=== PATIENT | male | born 1945 | race Two or more races ===

== ENCOUNTER 2018-09-05 19:11 | Emergency (ER) | payer BC, MEDICAID ==
[~2018-09-05] VITALS: Ht 172.7 cm; Wt 64.0 kg
[~2018-09-05 19:11] MED LIST: BENA40TA9; CLON0.2T
[2018-09-05] MEDS ORDERED: CLONIDINE 0.1MG TABLET PO ONE (21:00)
[2018-09-05] MEDS ORDERED: BENAZEPRIL 10MG TABLET PO ONE (21:00)
[2018-09-05] MEDS ORDERED: LIDOCAINE 1%/EPI 1:100,000 10 ML VIAL IJ ONE (23:00)
[2018-09-05] MEDS ORDERED: LIDOCAINE HCL/EPINEPHRINE 1%-EPI 1:100,000 20 ML VIAL IJ SCH (23:12)
[2018-09-06 00:57] VITALS: BP 181/93
== END 2018-09-06 01:04 | disposition home or self-care (01) ==
LOC: ER 19:11
DX: S01.01XA Laceration without foreign body of scalp, initial encounter (principal); S80.812A Abrasion, left lower leg, initial encounter; I10 Essential (primary) hypertension; I16.0 Hypertensive urgency; V29.9XXA Motorcycle rider (driver) (passenger) injured in unspecified traffic accident, initial encounter; Y93.I9 Activity, other involving external motion; Y92.89 Other specified places as the place of occurrence of the external cause; Y99.8 Other external cause status
CPT/HCPCS: 12002; 70450; 72125; 99284; J3490

== ENCOUNTER 2018-10-14 18:30 | Inpatient (IN) | payer BC, MEDICAID, MEDICARE ==
[~2018-10-14] VITALS: Ht 170.2 cm; Wt 80.7 kg
[2018-10-14] MEDS ORDERED: HYDR12.54 MT (18:48)
[2018-10-14 22:15] LABS: BASOPHILS % 0.9 % (0.0-2.0); EOSINOPHILS % 2.8 % (0.0-5.0); HEMATOCRIT. 47.4 % (42.0-52.0); HEMOGLOBIN. 15.3 g/dL (14.0-18.0); LYMPHOCYTES % 27.3 % (20.0-50.0); MEAN CORPUSCULAR HEMOGLOBIN 27.7 pg (28.0-32.0); MEAN CORPUSCULAR VOLUME 85.7 fL (80.0-94.0); MEAN PLATELET VOLUME 11.5 fl (7.4-10.4); MONOCYTES % 13.1 % (2.0-8.0); NEUTROPHILS % 55.9 % (40.0-76.0); PLATELET 153 x1000/uL (130-400); RED BLOOD CELL COUNT 5.53 mill/uL (4.7-6.1); RED CELL DISTRIBUTION WIDTH 14.4 % (11.6-14.6)
[2018-10-14 22:20] LABS: CLARITY URINE CLEAR (CLEAR); COLOR URINE YELLOW (YELLOW); KETONES URINE NEGATIVE (NEGATIVE); LEUKOCYTE ESTERASE URINE NEGATIVE (NEGATIVE); NITRITE URINE NEGATIVE (NEGATIVE); OCCULT BLOOD URINE NEGATIVE (NEGATIVE); PROTEIN URINE NEGATIVE (NEGATIVE); SPECIFIC GRAVITY URINE 1.011 (1.005-1.030); UROBILINOGEN URINE 0.2 E.U./dL (0.2-1.0)
[2018-10-14] MEDS ORDERED: LEVETIRACETAM 500MG PREMIX 100 ML IV ONE ×2 (23:00)
[2018-10-14 23:25] LABS: CHLORIDE 102 mEq/L (98-107)
[2018-10-14 23:27] LABS: INR 1.1; PROTHROMBIN TIME 10.7 sec (9.1-11.1)
[2018-10-15] VITALS (54 sets, daily range): BP systolic 82–186; BP diastolic 16–102
[2018-10-15] MEDS ORDERED: DEXT 5%/LACTATED RINGERS 1,000 ML IV SCH (07:12)
[2018-10-15] MEDS ORDERED: ACETAMINOPHEN 650MG SUPP PR PRN (07:15)
[2018-10-15] MEDS ORDERED: NITROGLYCERIN 0.4MG TABLET SL SL PRN (07:15)
[2018-10-15] MEDS ORDERED: NICARDIPINE 50 MG in SODIUM CHLORIDE 0.9% 230 ML IV PRN (07:15)
[2018-10-15] MEDS ORDERED: LORAZEPAM 2MG/ML CPJ IV PRN (07:15)
[2018-10-15] MEDS ORDERED: LEVETIRACETAM 500 MG in SODIUM CHLORIDE 0.9% 100 ML IV SCH (08:45)
[2018-10-15] MEDS ORDERED: NICARDIPINE 100 MG in SODIUM CHLORIDE 0.9% 60 ML IV PRN (08:45)
[2018-10-15] MEDS ORDERED: LEVETIRACETAM 500MG PREMIX 100 ML IV SCH (09:00)
[2018-10-15] MEDS ORDERED: ATROPINE SULFATE 1MG/10ML SYR ONE ×2 (09:02→13:16)
[2018-10-15] MEDS: DEXAMETHASONE 4MG/ML 1ML VIAL IV SCH ×4 (09:17→23:00)
[2018-10-15] MEDS: NITROPRUSSIDE 50 MG in SODIUM CHLORIDE 0.9% 248 ML IV PRN (09:19)
[2018-10-15] MEDS: DEXT 5%/LACTATED RINGERS 1,000 ML IV SCH (09:19)
[2018-10-15] MEDS: PANTOPRAZOLE SODIUM 40 MG/VIAL IV SCH (09:21)
[2018-10-15] MEDS ORDERED: GELATIN SPONGE,ABSORBABLE 12-7MM SPONGE ONE (09:33)
[2018-10-15] MEDS ORDERED: THROMBIN (BOVINE) 5000 UNITS/VIAL TOP ONE ×2 (09:33→09:34)
[2018-10-15] MEDS ORDERED: BACITRACIN 50,000 UNITS/VIAL ONE (09:34)
[2018-10-15] MEDS ORDERED: LIDOCAINE HCL/EPINEPHRINE 1%-EPI 1:100,000 20 ML VIAL ONE (09:34)
[2018-10-15 09:36] LABS: INR 1.1; PROTHROMBIN TIME 10.8 sec (9.1-11.1)
[2018-10-15] MEDS: CEFAZOLIN 1000MG PREMIX 50 ML IV SCH ×2 (09:56→17:16)
[2018-10-15] MEDS ORDERED: LEVETIRACETAM 500MG in SODIUM CHLORIDE 0.9% 100ML IV SCH (10:00)
[2018-10-15] MEDS ORDERED: NEOSTIGMINE METHYLSULFATE 1MG/ML 10 ML VIAL ONE (10:10)
[2018-10-15] MEDS ORDERED: FENTANYL CITRATE/PF 50MCG/ML 2ML VIAL ONE ×2 (10:10→11:10)
[2018-10-15] MEDS ORDERED: PROPOFOL 200MG/20ML VIAL IV ONE (10:11)
[2018-10-15] MEDS ORDERED: MIDAZOLAM HCL 2 MG/2 ML VIAL ONE ×2 (10:11→11:11)
[2018-10-15] MEDS ORDERED: ROCURONIUM BROMIDE 10MG/ML VIAL 5ML IV ONE ×2 (10:11→11:12)
[2018-10-15] MEDS ORDERED: GLYCOPYRROLATE 0.2 MG/ML 2ML VIAL ONE ×3 (10:11→11:23)
[2018-10-15] MEDS ORDERED: DEXAMETHASONE 4MG/ML 1ML VIAL ONE (10:32)
[2018-10-15] MEDS ORDERED: ONDANSETRON HCL 4MG/2ML INJ ONE (10:32)
[2018-10-15] MEDS ORDERED: LABETALOL HCL 5MG/ML VIAL 20ML IV ONE (11:14)
[2018-10-15] MEDS ORDERED: BACITRACIN 15GM TUBE TOP ONE (11:17)
[2018-10-15] MEDS ORDERED: EPHEDRINE SULFATE 50MG/ML VIAL ONE (11:24)
[2018-10-15] MEDS ORDERED: SODIUM CHLORIDE 0.9% 10ML VIAL ONE (11:24)
[2018-10-15] MEDS ORDERED: HYDROMORPHONE HCL/PF 2MG/ML CPJ IV PRN (11:30)
[2018-10-15] MEDS ORDERED: NON FORMULARY PATIENT HOME MED XX SCH (12:00)
[2018-10-15] MEDS ORDERED: PHENYTOIN SODIUM 500 MG in SODIUM CHLORIDE 0.9% 50 ML IV NR (12:30)
[2018-10-15] MEDS: PROPOFOL 10MG/ML 100ML 100 ML IV PRN ×2 (12:42→15:38)
[2018-10-15 13:49] LABS: BG BASE EXCESS -5.3 mmol/L (-2.0-2.0); BG CARBOXYHEMOGLOBIN 0.8 % (0.5-1.5); BG DEOXYHEMOGLOBIN 0.2 % (0.0-5.0); BG FRACTION INSPIRED OXYGEN 100; BG HCO3 ACT 19.3 mmol/L (22.0-26.0); BG METHEMOGLOBIN 0.5 % (0.0-1.5); BG OXYGEN SATURATION 99.8 % (92.0-98.5); BG OXYHEMOGLOBIN 98.5 % (94.0-97.0); BG PCO2 34.8 mmHg (35.0-45.0); BG PH 7.361 (7.350-7.450); BG PO2 389.2 mmHg (75.0-100.0); BG SAMPLE SITE RIGHT BRACHIAL; BG TIDAL VOLUME(mL) 500 mL; BG TOTAL HEMOGLOBIN 14.9 g/dL (12.0-18.0); BG VENT MODE VENT - A/C; BG VENT RATE 10 set
[2018-10-15] MEDS ORDERED: CEFAZOLIN SODIUM 1000MG/VIAL IV SCH (14:00)
[2018-10-15] MEDS ORDERED: ATROPINE SULFATE 1MG/ML VIAL IV NR (14:30)
[2018-10-15] MEDS ORDERED: ATROPINE SULFATE 1MG/10ML SYR IV NR (15:00)
[2018-10-16] VITALS (93 sets, daily range): BP systolic 95–175; BP diastolic 49–87
[2018-10-16] MEDS: PROPOFOL 10MG/ML 100ML 100 ML IV PRN ×5 (00:03→23:08)
[2018-10-16] MEDS: CEFAZOLIN 1000MG PREMIX 50 ML IV SCH ×3 (01:20→17:36)
[2018-10-16] MEDS: DEXT 5%/LACTATED RINGERS 1,000 ML IV SCH ×2 (01:21→21:03)
[2018-10-16] MEDS: DEXAMETHASONE 4MG/ML 1ML VIAL IV SCH ×4 (05:09→23:07)
[2018-10-16 05:43] LABS: HEMATOCRIT. 44.5 % (42.0-52.0); HEMOGLOBIN. 14.2 g/dL (14.0-18.0); MEAN CORPUSCULAR HEMOGLOBIN 27.3 pg (28.0-32.0); MEAN CORPUSCULAR VOLUME 85.5 fL (80.0-94.0); MEAN PLATELET VOLUME 11.9 fl (7.4-10.4); PLATELET 124 x1000/uL (130-400); RED BLOOD CELL COUNT 5.21 mill/uL (4.7-6.1); RED CELL DISTRIBUTION WIDTH 13.8 % (11.6-14.6)
[2018-10-16 05:49] LABS: INR 1.1; PARTIAL THROMBOPLASTIN TIME 27.1 sec (23.4-31.0); PROTHROMBIN TIME 10.8 sec (9.1-11.1)
[2018-10-16 06:15] LABS: *BARBITURATES SCREEN URINE NEGATIVE (NEGATIVE); CANNABINOID URINE SCREEN NEGATIVE (NEGATIVE); PHENCYCLIDINE URINE SCREEN NEGATIVE (NEGATIVE)
[2018-10-16 06:16] LABS: *AMPHETAMINES SCREEN URINE NEGATIVE (NEGATIVE); *BENZODIAZEPINES SCREEN URINE PRESUMTIVE POSITIVE (NEGATIVE); *COCAINE SCREEN URINE NEGATIVE (NEGATIVE); METHADONE URINE SCREEN NEGATIVE (NEGATIVE); OPIATES URINE SCREEN NEGATIVE (NEGATIVE)
[2018-10-16 08:19] LABS: PLATELET ESTIMATE SLIGHTLY DECREASED
[2018-10-16] MEDS: PANTOPRAZOLE SODIUM 40 MG/VIAL IV SCH (08:28)
[2018-10-16] MEDS ORDERED: THROMBIN (BOVINE) 5000 UNITS/VIAL TOP ONE (09:15)
[2018-10-16] MEDS ORDERED: GELATIN SPONGE,ABSORBABLE 12-7MM SPONGE ONE (09:15)
[2018-10-16] MEDS ORDERED: BACITRACIN 15GM TUBE TOP ONE (09:15)
[2018-10-16] MEDS ORDERED: LIDOCAINE HCL/EPINEPHRINE 1%-EPI 1:100,000 20 ML VIAL ONE (09:16)
[2018-10-16] MEDS ORDERED: BACITRACIN 50,000 UNITS/VIAL ONE (09:16)
[2018-10-16 09:36] LABS: BG BASE EXCESS -2.4 mmol/L (-2.0-2.0); BG CARBOXYHEMOGLOBIN 0.5 % (0.5-1.5); BG DEOXYHEMOGLOBIN 2.8 % (0.0-5.0); BG FRACTION INSPIRED OXYGEN 40; BG HCO3 ACT 21.5 mmol/L (22.0-26.0); BG METHEMOGLOBIN 0.1 % (0.0-1.5); BG OXYGEN SATURATION 97.2 % (92.0-98.5); BG OXYHEMOGLOBIN 96.6 % (94.0-97.0); BG PCO2 34.7 mmHg (35.0-45.0); BG PO2 94.6 mmHg (75.0-100.0); BG SAMPLE SITE RIGHT BRACHIAL; BG TIDAL VOLUME(mL) 500 mL; BG TOTAL HEMOGLOBIN 14.8 g/dL (12.0-18.0); BG VENT MODE VENT - A/C; BG VENT RATE 10 set
[2018-10-16] MEDS ORDERED: FENTANYL CITRATE/PF 50MCG/ML 2ML VIAL ONE (10:33)
[2018-10-16] MEDS ORDERED: MIDAZOLAM HCL 2 MG/2 ML VIAL ONE (10:33)
[2018-10-16] MEDS ORDERED: GLYCOPYRROLATE 0.2 MG/ML 2ML VIAL ONE (10:34)
[2018-10-16] MEDS ORDERED: PROPOFOL 10MG/ML 100ML 100 ML IV ONE (11:05)
[2018-10-16] MEDS ORDERED: VECURONIUM BROMIDE 10 MG/VIAL IV ONE (11:30)
[2018-10-16] MEDS: NITROPRUSSIDE 50 MG in SODIUM CHLORIDE 0.9% 248 ML IV PRN (15:42)
[2018-10-17] VITALS (99 sets, daily range): BP systolic 102–196; BP diastolic 57–104
[2018-10-17] MEDS: PROPOFOL 10MG/ML 100ML 100 ML IV PRN ×2 (02:45→06:01)
[2018-10-17] MEDS: CEFAZOLIN 1000MG PREMIX 50 ML IV SCH ×2 (02:45→11:28)
[2018-10-17 05:50] LABS: HEMATOCRIT. 44.3 % (42.0-52.0); HEMOGLOBIN. 14.2 g/dL (14.0-18.0); MEAN CORPUSCULAR HEMOGLOBIN 27.7 pg (28.0-32.0); MEAN CORPUSCULAR VOLUME 86.2 fL (80.0-94.0); MEAN PLATELET VOLUME 12.3 fl (7.4-10.4); PLATELET 114 x1000/uL (130-400); RED BLOOD CELL COUNT 5.14 mill/uL (4.7-6.1); RED CELL DISTRIBUTION WIDTH 14.2 % (11.6-14.6)
[2018-10-17] MEDS: DEXAMETHASONE 4MG/ML 1ML VIAL IV SCH ×4 (06:01→23:40)
[2018-10-17 08:28] LABS: BG BASE EXCESS 0.6 mmol/L (-2.0-2.0); BG CARBOXYHEMOGLOBIN 0.8 % (0.5-1.5); BG DEOXYHEMOGLOBIN 2.9 % (0.0-5.0); BG FRACTION INSPIRED OXYGEN 40; BG HCO3 ACT 24.6 mmol/L (22.0-26.0); BG METHEMOGLOBIN 0.4 % (0.0-1.5); BG OXYGEN SATURATION 97.1 % (92.0-98.5); BG OXYHEMOGLOBIN 95.9 % (94.0-97.0); BG PCO2 37.7 mmHg (35.0-45.0); BG PH 7.433 (7.350-7.450); BG PO2 91.5 mmHg (75.0-100.0); BG SAMPLE SITE RIGHT BRACHIAL; BG TIDAL VOLUME(mL) 500 mL; BG TOTAL HEMOGLOBIN 14.4 g/dL (12.0-18.0); BG VENT MODE VENT - A/C; BG VENT RATE 10 set
[2018-10-17] MEDS: IPRATROPIUM/ALBUTEROL 0.5-3(2.5)MG/3ML NEB INH PRN (08:28)
[2018-10-17] MEDS: PANTOPRAZOLE SODIUM 40 MG/VIAL IV SCH (08:39)
[2018-10-17] MEDS ORDERED: MAGNESIUM OXIDE 400MG TABLET NG SCH (10:15)
[2018-10-17] MEDS ORDERED: PROPOFOL 10MG/ML 100ML 100 ML IV PRN (11:15)
[2018-10-17] MEDS: IPRATROPIUM/ALBUTEROL 0.5-3(2.5)MG/3ML NEB HHN SCH ×3 (12:07→21:25)
[2018-10-17] MEDS: NITROPRUSSIDE 50 MG in SODIUM CHLORIDE 0.9% 248 ML IV PRN (12:30)
[2018-10-17] MEDS: METRONIDAZOLE 500 MG PREMIX 100 ML IV SCH ×2 (13:16→20:42)
[2018-10-17 13:21] LABS: PLATELET ESTIMATE SLIGHTLY DECREASED
[2018-10-17] MEDS: DEXT 5%/LACTATED RINGERS 1,000 ML IV SCH (14:44)
[2018-10-17] MEDS: CEFEPIME 1,000 MG in DEXTROSE 5% WATER 50 ML IV SCH (15:15)
[2018-10-17] MEDS: MIDAZOLAM HCL 100 MG in DEXT 5% WATER 80 ML IV PRN (15:19)
[2018-10-17] MEDS: FENTANYL CITRATE/PF 500 MCG in SODIUM CHLORIDE 0.9% 40 ML IV PRN ×2 (15:21→22:24)
[2018-10-17] MEDS ORDERED: CEFAZOLIN 1000MG PREMIX 50 ML IV SCH (20:00)
[2018-10-18] VITALS (103 sets, daily range): BP systolic 73–197; BP diastolic 16–110
[2018-10-18] MEDS: NITROPRUSSIDE 50 MG in SODIUM CHLORIDE 0.9% 248 ML IV PRN ×2 (01:39→09:58)
[2018-10-18] MEDS: METRONIDAZOLE 500 MG PREMIX 100 ML IV SCH ×3 (03:59→20:03)
[2018-10-18] MEDS: DEXT 5%/LACTATED RINGERS 1,000 ML IV SCH ×2 (04:00→09:56)
[2018-10-18] MEDS: MIDAZOLAM HCL 100 MG in DEXT 5% WATER 80 ML IV PRN ×2 (04:02→18:01)
[2018-10-18 05:31] LABS: HEMATOCRIT. 42.2 % (42.0-52.0); HEMOGLOBIN. 13.5 g/dL (14.0-18.0); MEAN CORPUSCULAR HEMOGLOBIN 27.6 pg (28.0-32.0); MEAN CORPUSCULAR VOLUME 85.8 fL (80.0-94.0); MEAN PLATELET VOLUME 11.7 fl (7.4-10.4); PLATELET 108 x1000/uL (130-400); RED BLOOD CELL COUNT 4.92 mill/uL (4.7-6.1); RED CELL DISTRIBUTION WIDTH 14.2 % (11.6-14.6)
[2018-10-18] MEDS: DEXAMETHASONE 4MG/ML 1ML VIAL IV SCH ×4 (05:55→23:43)
[2018-10-18 07:54] LABS: BG CARBOXYHEMOGLOBIN 0.4 % (0.5-1.5); BG DEOXYHEMOGLOBIN 4.1 % (0.0-5.0); BG FRACTION INSPIRED OXYGEN 40; BG HCO3 ACT 26.2 mmol/L (22.0-26.0); BG METHEMOGLOBIN 0.1 % (0.0-1.5); BG OXYGEN SATURATION 95.9 % (92.0-98.5); BG OXYHEMOGLOBIN 95.4 % (94.0-97.0); BG PCO2 43.6 mmHg (35.0-45.0); BG PH 7.396 (7.350-7.450); BG PO2 81.6 mmHg (75.0-100.0); BG SAMPLE SITE RIGHT BRACHIAL; BG TIDAL VOLUME(mL) 500 mL; BG TOTAL HEMOGLOBIN 13.4 g/dL (12.0-18.0); BG VENT MODE VENT - A/C; BG VENT RATE 10 set
[2018-10-18] MEDS: IPRATROPIUM/ALBUTEROL 0.5-3(2.5)MG/3ML NEB HHN SCH ×3 (08:15→20:42)
[2018-10-18] MEDS: FENTANYL CITRATE/PF 500 MCG in SODIUM CHLORIDE 0.9% 40 ML IV PRN ×2 (08:16→14:43)
[2018-10-18] MEDS: PANTOPRAZOLE SODIUM 40 MG/VIAL IV SCH (08:58)
[2018-10-18 10:15] LABS: PLATELET ESTIMATE SLIGHTLY DECREASED
[2018-10-18] MEDS: IPRATROPIUM/ALBUTEROL 0.5-3(2.5)MG/3ML NEB INH PRN (12:06)
[2018-10-18] MEDS ORDERED: LIDOCAINE HCL 1% 20ML VIAL (Pyxis) INJ ONE (13:02)
[2018-10-18] MEDS ORDERED: DEXTROSE 50% WATER 50ML SYRINGE IV PRN (15:15)
[2018-10-18] MEDS: CEFEPIME 1,000 MG in DEXTROSE 5% WATER 50 ML IV SCH (15:28)
[2018-10-18] MEDS: BLOOD SUGAR DIAGNOSTIC STRIP TEST SCH ×3 (16:00→23:51)
[2018-10-18] MEDS: INSULIN LISPRO 100 UNITS/ML SUBCUT SCH ×2 (18:00→23:51)
[2018-10-19] VITALS (86 sets, daily range): BP systolic 82–203; BP diastolic 26–150
[2018-10-19] MEDS: FENTANYL CITRATE/PF 500 MCG in SODIUM CHLORIDE 0.9% 40 ML IV PRN ×3 (00:49→21:57)
[2018-10-19] MEDS: IPRATROPIUM/ALBUTEROL 0.5-3(2.5)MG/3ML NEB HHN SCH ×4 (01:16→20:27)
[2018-10-19] MEDS: METRONIDAZOLE 500 MG PREMIX 100 ML IV SCH ×3 (03:58→20:54)
[2018-10-19] MEDS: INSULIN LISPRO 100 UNITS/ML SUBCUT SCH ×4 (06:00→23:37)
[2018-10-19] MEDS: BLOOD SUGAR DIAGNOSTIC STRIP TEST SCH ×4 (06:00→23:37)
[2018-10-19 06:17] LABS: HEMATOCRIT 39.2 % (42.0-52.0); HEMOGLOBIN 12.5 g/dL (14.0-18.0); MEAN CORPUSCULAR HEMOGLOBIN 27.5 pg (28.0-32.0); MEAN CORPUSCULAR VOLUME 86.4 fL (80.0-94.0); PLATELET 93 x1000/uL (130-400); RED BLOOD CELL COUNT 4.53 mill/uL (4.7-6.1); RED CELL DISTRIBUTION WIDTH 14.1 % (11.6-14.6)
[2018-10-19] MEDS: DEXAMETHASONE 4MG/ML 1ML VIAL IV SCH (07:18)
[2018-10-19] MEDS: NITROPRUSSIDE 50 MG in SODIUM CHLORIDE 0.9% 248 ML IV PRN ×2 (08:17→23:39)
[2018-10-19 08:27] LABS: BG BASE EXCESS 2.1 mmol/L (-2.0-2.0); BG CARBOXYHEMOGLOBIN 0.9 % (0.5-1.5); BG FRACTION INSPIRED OXYGEN 40; BG METHEMOGLOBIN 0.3 % (0.0-1.5); BG OXYGEN SATURATION 93.9 % (92.0-98.5); BG OXYHEMOGLOBIN 92.8 % (94.0-97.0); BG PCO2 48.9 mmHg (35.0-45.0); BG PH 7.375 (7.350-7.450); BG PO2 73.7 mmHg (75.0-100.0); BG SAMPLE SITE RIGHT RADIAL; BG TIDAL VOLUME(mL) 500 mL; BG TOTAL HEMOGLOBIN 12.2 g/dL (12.0-18.0); BG VENT MODE VENT - A/C; BG VENT RATE 10 set
[2018-10-19] MEDS: MIDAZOLAM HCL 100 MG in DEXT 5% WATER 80 ML IV PRN ×2 (10:23→21:57)
[2018-10-19] MEDS: PANTOPRAZOLE SODIUM 40 MG/VIAL IV SCH (10:35)
[2018-10-19] MEDS ORDERED: ATROPINE SULFATE 1MG/ML VIAL IV PRN (13:30)
[2018-10-19] MEDS: CEFEPIME 1,000 MG in DEXTROSE 5% WATER 50 ML IV SCH (16:19)
[2018-10-19] MEDS: METHYLPREDNISOLONE SOD SUCC 40 MG/ML VIAL IV SCH ×2 (16:19→23:38)
[2018-10-20] VITALS (98 sets, daily range): BP systolic 98–223; BP diastolic 46–108
[2018-10-20] MEDS: DEXT 5%/LACTATED RINGERS 1,000 ML IV SCH ×2 (02:00→20:16)
[2018-10-20] MEDS: IPRATROPIUM/ALBUTEROL 0.5-3(2.5)MG/3ML NEB HHN SCH ×4 (02:46→20:19)
[2018-10-20] MEDS: METRONIDAZOLE 500 MG PREMIX 100 ML IV SCH (04:16)
[2018-10-20] MEDS: FENTANYL CITRATE/PF 500 MCG in SODIUM CHLORIDE 0.9% 40 ML IV PRN ×3 (04:34→22:41)
[2018-10-20 05:40] LABS: HEMATOCRIT 37.5 % (42.0-52.0); MEAN CORPUSCULAR HEMOGLOBIN 27.5 pg (28.0-32.0); PLATELET 77 x1000/uL (130-400); RED BLOOD CELL COUNT 4.36 mill/uL (4.7-6.1); RED CELL DISTRIBUTION WIDTH 13.8 % (11.6-14.6)
[2018-10-20] MEDS: BLOOD SUGAR DIAGNOSTIC STRIP TEST SCH ×4 (05:57→23:32)
[2018-10-20] MEDS: INSULIN LISPRO 100 UNITS/ML SUBCUT SCH ×4 (05:57→23:33)
[2018-10-20 08:43] LABS: BG BASE EXCESS 2.5 mmol/L (-2.0-2.0); BG CARBOXYHEMOGLOBIN 0.3 % (0.5-1.5); BG DEOXYHEMOGLOBIN 7.6 % (0.0-5.0); BG FRACTION INSPIRED OXYGEN 40; BG HCO3 ACT 27.6 mmol/L (22.0-26.0); BG METHEMOGLOBIN 0.3 % (0.0-1.5); BG OXYGEN SATURATION 92.4 % (92.0-98.5); BG OXYHEMOGLOBIN 91.8 % (94.0-97.0); BG PCO2 44.7 mmHg (35.0-45.0); BG PH 7.409 (7.350-7.450); BG PO2 65.2 mmHg (75.0-100.0); BG SAMPLE SITE RIGHT RADIAL; BG TIDAL VOLUME(mL) 500 mL; BG TOTAL HEMOGLOBIN 12.2 g/dL (12.0-18.0); BG VENT MODE VENT - A/C; BG VENT RATE 10 set
[2018-10-20] MEDS: MIDAZOLAM HCL 100 MG in DEXT 5% WATER 80 ML IV PRN (09:09)
[2018-10-20] MEDS: METHYLPREDNISOLONE SOD SUCC 40 MG/ML VIAL IV SCH ×3 (09:45→22:39)
[2018-10-20] MEDS ORDERED: LIDOCAINE HCL 2% JELLY 5ML MM NR (09:45)
[2018-10-20] MEDS: NICARDIPINE 100 MG in SODIUM CHLORIDE 0.9% 60 ML IV PRN ×2 (10:09→17:06)
[2018-10-20] MEDS ORDERED: MIDAZOLAM HCL 100 MG in DEXT 5% WATER 80 ML IV PRN (11:40)
[2018-10-20] MEDS: FAMOTIDINE 20MG/2ML VIAL IV SCH ×2 (12:33→20:00)
[2018-10-20] MEDS: DIPHENHYDRAMINE 50MG/ML VIAL IV PRN ×2 (14:35→19:56)
[2018-10-20 15:52] LABS: HEMATOCRIT 40.5 % (42.0-52.0); HEMOGLOBIN 12.8 g/dL (14.0-18.0); MEAN CORPUSCULAR HEMOGLOBIN 27.2 pg (28.0-32.0); MEAN CORPUSCULAR VOLUME 86.1 fL (80.0-94.0); PLATELET 75 x1000/uL (130-400)
[2018-10-21] VITALS (98 sets, daily range): BP systolic 112–170; BP diastolic 24–88
[2018-10-21] MEDS: DIPHENHYDRAMINE 50MG/ML VIAL IV PRN ×4 (00:10→17:51)
[2018-10-21] MEDS: IPRATROPIUM/ALBUTEROL 0.5-3(2.5)MG/3ML NEB HHN SCH ×4 (01:59→20:30)
[2018-10-21] MEDS: NICARDIPINE 100 MG in SODIUM CHLORIDE 0.9% 60 ML IV PRN (02:34)
[2018-10-21] MEDS: BLOOD SUGAR DIAGNOSTIC STRIP TEST SCH ×4 (06:10→23:56)
[2018-10-21] MEDS: INSULIN LISPRO 100 UNITS/ML SUBCUT SCH ×3 (06:16→18:06)
[2018-10-21] MEDS: METHYLPREDNISOLONE SOD SUCC 40 MG/ML VIAL IV SCH ×3 (06:16→23:21)
[2018-10-21 06:25] LABS: HEMATOCRIT 42.5 % (42.0-52.0); HEMOGLOBIN 13.5 g/dL (14.0-18.0); MEAN CORPUSCULAR HEMOGLOBIN 27.4 pg (28.0-32.0); MEAN CORPUSCULAR VOLUME 86.1 fL (80.0-94.0); PLATELET 78 x1000/uL (130-400); RED BLOOD CELL COUNT 4.93 mill/uL (4.7-6.1)
[2018-10-21 07:13] LABS: CHLORIDE 111 mEq/L (98-107)
[2018-10-21 08:59] LABS: BG BASE EXCESS 1.7 mmol/L (-2.0-2.0); BG CARBOXYHEMOGLOBIN 0.9 % (0.5-1.5); BG DEOXYHEMOGLOBIN 4.9 % (0.0-5.0); BG FRACTION INSPIRED OXYGEN 55; BG HCO3 ACT 24.5 mmol/L (22.0-26.0); BG METHEMOGLOBIN 0.1 % (0.0-1.5); BG OXYGEN SATURATION 95.1 % (92.0-98.5); BG OXYHEMOGLOBIN 94.1 % (94.0-97.0); BG PCO2 31.9 mmHg (35.0-45.0); BG PH 7.503 (7.350-7.450); BG SAMPLE SITE RIGHT BRACHIAL; BG TIDAL VOLUME(mL) 500 mL; BG TOTAL HEMOGLOBIN 10.7 g/dL (12.0-18.0); BG VENT MODE VENT - A/C; BG VENT RATE 10 set
[2018-10-21] MEDS: FAMOTIDINE 20MG/2ML VIAL IV SCH (09:38)
[2018-10-21] MEDS: FENTANYL CITRATE/PF 500 MCG in SODIUM CHLORIDE 0.9% 40 ML IV PRN (09:39)
[2018-10-21] MEDS ORDERED: FUROSEMIDE 40MG/4ML VIAL IVP NR (13:45)
[2018-10-21] MEDS ORDERED: QUETIAPINE FUMARATE 25MG TABLET NG SCH (17:15)
[2018-10-21] MEDS: DEXT 5%/LACTATED RINGERS 1,000 ML IV SCH (17:50)
[2018-10-22] VITALS (93 sets, daily range): BP systolic 117–172; BP diastolic 27–109
[2018-10-22] MEDS: INSULIN LISPRO 100 UNITS/ML SUBCUT SCH ×4 (00:03→18:27)
[2018-10-22] MEDS: IPRATROPIUM/ALBUTEROL 0.5-3(2.5)MG/3ML NEB HHN SCH ×4 (01:20→20:01)
[2018-10-22] MEDS: DIPHENHYDRAMINE 50MG/ML VIAL IV PRN ×2 (01:31→07:44)
[2018-10-22] MEDS: FENTANYL CITRATE/PF 500 MCG in SODIUM CHLORIDE 0.9% 40 ML IV PRN ×2 (02:18→15:26)
[2018-10-22] MEDS: NICARDIPINE 100 MG in SODIUM CHLORIDE 0.9% 60 ML IV PRN ×2 (05:29→20:31)
[2018-10-22] MEDS: BLOOD SUGAR DIAGNOSTIC STRIP TEST SCH ×3 (05:29→18:25)
[2018-10-22 05:33] LABS: HEMATOCRIT. 40.6 % (42.0-52.0); HEMOGLOBIN. 12.9 g/dL (14.0-18.0); MEAN CORPUSCULAR HEMOGLOBIN 27.5 pg (28.0-32.0); MEAN CORPUSCULAR VOLUME 86.3 fL (80.0-94.0); MEAN PLATELET VOLUME 11.1 fl (7.4-10.4); PLATELET 65 x1000/uL (130-400); RED BLOOD CELL COUNT 4.71 mill/uL (4.7-6.1); RED CELL DISTRIBUTION WIDTH 13.8 % (11.6-14.6)
[2018-10-22] MEDS: METHYLPREDNISOLONE SOD SUCC 40 MG/ML VIAL IV SCH ×2 (07:04→16:07)
[2018-10-22] MEDS: DEXT 5%/LACTATED RINGERS 1,000 ML IV SCH (07:04)
[2018-10-22 07:11] LABS: BG BASE EXCESS 4.6 mmol/L (-2.0-2.0); BG CARBOXYHEMOGLOBIN 0.9 % (0.5-1.5); BG DEOXYHEMOGLOBIN 1.3 % (0.0-5.0); BG HCO3 ACT 30.2 mmol/L (22.0-26.0); BG METHEMOGLOBIN 0.5 % (0.0-1.5); BG OXYGEN SATURATION 98.7 % (92.0-98.5); BG OXYHEMOGLOBIN 97.3 % (94.0-97.0); BG PCO2 48.7 mmHg (35.0-45.0); BG PH 7.411 (7.350-7.450); BG PO2 132.6 mmHg (75.0-100.0); BG SAMPLE SITE RIGHT RADIAL; BG TIDAL VOLUME(mL) 500 mL; BG TOTAL HEMOGLOBIN 14.1 g/dL (12.0-18.0); BG VENT MODE VENT - A/C; BG VENT RATE 10 set
[2018-10-22] MEDS: QUETIAPINE FUMARATE 25MG TABLET NG SCH ×2 (10:37→22:07)
[2018-10-22] MEDS: FAMOTIDINE 20MG/2ML VIAL IV SCH (12:49)
[2018-10-22 12:50] LABS: PLATELET ESTIMATE DECREASED
[2018-10-22] MEDS: MIDAZOLAM HCL 100 MG in DEXT 5% WATER 80 ML IV PRN (15:25)
[2018-10-23] VITALS (88 sets, daily range): BP systolic 106–165; BP diastolic 54–91
[2018-10-23] MEDS: INSULIN LISPRO 100 UNITS/ML SUBCUT SCH ×4 (00:05→18:00)
[2018-10-23] MEDS: METHYLPREDNISOLONE SOD SUCC 40 MG/ML VIAL IV SCH ×4 (00:05→22:54)
[2018-10-23] MEDS: BLOOD SUGAR DIAGNOSTIC STRIP TEST SCH ×4 (00:06→18:04)
[2018-10-23] MEDS: IPRATROPIUM/ALBUTEROL 0.5-3(2.5)MG/3ML NEB HHN SCH ×4 (02:22→20:58)
[2018-10-23] MEDS: DEXT 5%/LACTATED RINGERS 1,000 ML IV SCH ×2 (02:37→17:59)
[2018-10-23] MEDS: NICARDIPINE 100 MG in SODIUM CHLORIDE 0.9% 60 ML IV PRN ×2 (06:59→16:00)
[2018-10-23] MEDS: QUETIAPINE FUMARATE 25MG TABLET NG SCH ×2 (08:39→21:38)
[2018-10-23] MEDS: DIPHENHYDRAMINE 50MG/ML VIAL IV PRN (08:39)
[2018-10-23] MEDS: FAMOTIDINE 20MG/2ML VIAL IV SCH (11:29)
[2018-10-23] MEDS: FENTANYL CITRATE/PF 500 MCG in SODIUM CHLORIDE 0.9% 40 ML IV PRN (11:30)
[2018-10-23] MEDS: MIDAZOLAM HCL 100 MG in DEXT 5% WATER 80 ML IV PRN (17:59)
[2018-10-23] MEDS: AMLODIPINE 5MG TABLET NG SCH (21:38)
[2018-10-23] MEDS: PIPERACILLIN/TAZ 2.25G PREMIX 50 ML IV SCH (22:53)
[2018-10-24] VITALS (95 sets, daily range): BP systolic 116–176; BP diastolic 38–127
[2018-10-24] MEDS: BLOOD SUGAR DIAGNOSTIC STRIP TEST SCH ×5 (00:36→23:20)
[2018-10-24] MEDS: INSULIN LISPRO 100 UNITS/ML SUBCUT SCH ×5 (00:36→23:24)
[2018-10-24] MEDS: IPRATROPIUM/ALBUTEROL 0.5-3(2.5)MG/3ML NEB HHN SCH ×4 (01:01→20:43)
[2018-10-24] MEDS: NICARDIPINE 100 MG in SODIUM CHLORIDE 0.9% 60 ML IV PRN ×3 (04:28→21:10)
[2018-10-24] MEDS: PIPERACILLIN/TAZ 2.25G PREMIX 50 ML IV SCH ×3 (05:40→21:16)
[2018-10-24] MEDS: METHYLPREDNISOLONE SOD SUCC 40 MG/ML VIAL IV SCH ×2 (05:41→16:53)
[2018-10-24 05:47] LABS: HEMATOCRIT. 41.4 % (42.0-52.0); HEMOGLOBIN. 13.2 g/dL (14.0-18.0); MEAN CORPUSCULAR HEMOGLOBIN 27.4 pg (28.0-32.0); MEAN CORPUSCULAR VOLUME 85.8 fL (80.0-94.0); MEAN PLATELET VOLUME 11.3 fl (7.4-10.4); PLATELET 66 x1000/uL (130-400); RED BLOOD CELL COUNT 4.82 mill/uL (4.7-6.1)
[2018-10-24 06:15] LABS: CHLORIDE 110 mEq/L (98-107)
[2018-10-24] MEDS ORDERED: LORAZEPAM 2MG/ML CPJ IV ONE (07:00)
[2018-10-24 07:18] LABS: PLATELET ESTIMATE DECREASED
[2018-10-24] MEDS: FENTANYL CITRATE/PF 500 MCG in SODIUM CHLORIDE 0.9% 40 ML IV PRN (08:01)
[2018-10-24] MEDS: AMLODIPINE 5MG TABLET NG SCH ×2 (10:26→21:17)
[2018-10-24] MEDS: QUETIAPINE FUMARATE 25MG TABLET NG SCH ×2 (10:26→21:17)
[2018-10-24] MEDS: FAMOTIDINE 20MG/2ML VIAL IV SCH (12:55)
[2018-10-24] MEDS: DEXT 5%/LACTATED RINGERS 1,000 ML IV SCH (12:56)
[2018-10-24 13:06] LABS: DRVVT LA 51.5 sec (0.0-47.0); PTT-LA 31.2 sec (0.0-51.9)
[2018-10-24 18:04] LABS: BG BASE EXCESS 4.2 mmol/L (-2.0-2.0); BG CARBOXYHEMOGLOBIN 0.6 % (0.5-1.5); BG DEOXYHEMOGLOBIN 4.3 % (0.0-5.0); BG FRACTION INSPIRED OXYGEN 50; BG METHEMOGLOBIN 0.2 % (0.0-1.5); BG OXYGEN SATURATION 95.7 % (92.0-98.5); BG OXYHEMOGLOBIN 94.9 % (94.0-97.0); BG PCO2 44.2 mmHg (35.0-45.0); BG PH 7.435 (7.350-7.450); BG PO2 80.8 mmHg (75.0-100.0); BG PRESSURE SUPPORT 10; BG SAMPLE SITE RIGHT RADIAL; BG TOTAL HEMOGLOBIN 12.9 g/dL (12.0-18.0); BG VENT MODE VENT - CPAP
[2018-10-24] MEDS: MORPHINE SULFATE 4 MG/ML CPJ (NOT FOR IM USE) IV PRN (21:25)
[2018-10-24] MEDS: DIPHENHYDRAMINE 50MG/ML VIAL IV PRN (21:25)
[2018-10-25] VITALS (84 sets, daily range): BP systolic 107–179; BP diastolic 27–121
[2018-10-25] MEDS: IPRATROPIUM/ALBUTEROL 0.5-3(2.5)MG/3ML NEB HHN SCH ×6 (00:05→19:52)
[2018-10-25] MEDS: LORAZEPAM 2MG/ML CPJ IV PRN ×4 (00:46→16:15)
[2018-10-25] MEDS: MORPHINE SULFATE 4 MG/ML CPJ (NOT FOR IM USE) IV PRN ×3 (01:19→14:16)
[2018-10-25] MEDS: DIPHENHYDRAMINE 50MG/ML VIAL IV PRN ×3 (01:19→21:17)
[2018-10-25] MEDS: METHYLPREDNISOLONE SOD SUCC 40 MG/ML VIAL IV SCH ×2 (02:16→14:17)
[2018-10-25 04:19] LABS: DRVVT MIX LA 44.6 sec (0.0-47.0); LUPUS ANTICOAG INTERPRETATION Comment: (.)
[2018-10-25] MEDS: DEXT 5%/LACTATED RINGERS 1,000 ML IV SCH (05:03)
[2018-10-25 05:24] LABS: HEMATOCRIT 43.7 % (42.0-52.0); HEMOGLOBIN 13.8 g/dL (14.0-18.0); MEAN CORPUSCULAR HEMOGLOBIN 27.3 pg (28.0-32.0); MEAN CORPUSCULAR VOLUME 86.5 fL (80.0-94.0); PLATELET 77 x1000/uL (130-400); RED BLOOD CELL COUNT 5.06 mill/uL (4.7-6.1); RED CELL DISTRIBUTION WIDTH 14.1 % (11.6-14.6)
[2018-10-25] MEDS: BLOOD SUGAR DIAGNOSTIC STRIP TEST SCH ×4 (05:58→23:21)
[2018-10-25] MEDS: PIPERACILLIN/TAZ 2.25G PREMIX 50 ML IV SCH ×3 (06:01→21:13)
[2018-10-25] MEDS: NICARDIPINE 100 MG in SODIUM CHLORIDE 0.9% 60 ML IV PRN ×3 (06:02→18:49)
[2018-10-25] MEDS: INSULIN LISPRO 100 UNITS/ML SUBCUT SCH ×4 (06:06→23:27)
[2018-10-25] MEDS: QUETIAPINE FUMARATE 25MG TABLET NG SCH ×2 (08:38→21:13)
[2018-10-25] MEDS: AMLODIPINE 5MG TABLET NG SCH ×2 (08:38→21:13)
[2018-10-25 08:55] LABS: BG BASE EXCESS 3.7 mmol/L (-2.0-2.0); BG CARBOXYHEMOGLOBIN 0.5 % (0.5-1.5); BG FRACTION INSPIRED OXYGEN 50; BG HCO3 ACT 28.8 mmol/L (22.0-26.0); BG METHEMOGLOBIN 0.2 % (0.0-1.5); BG OXYHEMOGLOBIN 95.3 % (94.0-97.0); BG PCO2 45.6 mmHg (35.0-45.0); BG PH 7.419 (7.350-7.450); BG PO2 88.1 mmHg (75.0-100.0); BG PRESSURE SUPPORT 10; BG SAMPLE SITE RIGHT RADIAL; BG VENT MODE VENT - CPAP
[2018-10-25] MEDS ORDERED: HYDRALAZINE 20MG/ML VIAL IV SCH (09:30)
[2018-10-25] MEDS: MAGNESIUM OXIDE 400MG TABLET NG SCH (12:22)
[2018-10-25] MEDS: FAMOTIDINE 20MG/2ML VIAL IV SCH (12:22)
[2018-10-25 13:39] LABS: BG CARBOXYHEMOGLOBIN 0.6 % (0.5-1.5); BG DEOXYHEMOGLOBIN 7.8 % (0.0-5.0); BG FRACTION INSPIRED OXYGEN 60; BG HCO3 ACT 27.2 mmol/L (22.0-26.0); BG METHEMOGLOBIN 0.2 % (0.0-1.5); BG OXYGEN SATURATION 92.1 % (92.0-98.5); BG OXYHEMOGLOBIN 91.4 % (94.0-97.0); BG PCO2 40.3 mmHg (35.0-45.0); BG PH 7.447 (7.350-7.450); BG PO2 62.6 mmHg (75.0-100.0); BG SAMPLE SITE RIGHT RADIAL; BG TOTAL HEMOGLOBIN 13.5 g/dL (12.0-18.0); BG VENT MODE MASK - AEROSOL
[2018-10-25] MEDS ORDERED: LORAZEPAM 2MG/ML CPJ IV PRN (14:00)
[2018-10-25] MEDS: HALOPERIDOL LACTATE 5MG/ML VIAL IM PRN (20:16)
[2018-10-26] VITALS (98 sets, daily range): BP systolic 59–226; BP diastolic 27–134
[2018-10-26] MEDS: LORAZEPAM 2MG/ML CPJ IV PRN ×4 (00:26→18:39)
[2018-10-26] MEDS: IPRATROPIUM/ALBUTEROL 0.5-3(2.5)MG/3ML NEB HHN SCH ×4 (02:05→20:01)
[2018-10-26] MEDS: METHYLPREDNISOLONE SOD SUCC 40 MG/ML VIAL IV SCH ×2 (02:23→14:25)
[2018-10-26] MEDS: NICARDIPINE 100 MG in SODIUM CHLORIDE 0.9% 60 ML IV PRN ×3 (02:23→22:35)
[2018-10-26] MEDS: DEXT 5%/LACTATED RINGERS 1,000 ML IV SCH (02:23)
[2018-10-26] MEDS: ONDANSETRON HCL 4MG/2ML INJ IV PRN ×2 (03:06→23:09)
[2018-10-26] MEDS: MORPHINE SULFATE 4 MG/ML CPJ (NOT FOR IM USE) IV PRN ×4 (03:07→18:39)
[2018-10-26] MEDS: INSULIN LISPRO 100 UNITS/ML SUBCUT SCH ×3 (05:17→18:39)
[2018-10-26] MEDS: PIPERACILLIN/TAZ 2.25G PREMIX 50 ML IV SCH ×3 (05:17→22:00)
[2018-10-26] MEDS: BLOOD SUGAR DIAGNOSTIC STRIP TEST SCH ×3 (05:18→18:39)
[2018-10-26 06:01] LABS: HEMATOCRIT. 39.6 % (42.0-52.0); HEMOGLOBIN. 12.7 g/dL (14.0-18.0); MEAN CORPUSCULAR HEMOGLOBIN 27.3 pg (28.0-32.0); MEAN CORPUSCULAR VOLUME 85.3 fL (80.0-94.0); MEAN PLATELET VOLUME 11.5 fl (7.4-10.4); PLATELET 76 x1000/uL (130-400); RED BLOOD CELL COUNT 4.64 mill/uL (4.7-6.1)
[2018-10-26] MEDS: HALOPERIDOL LACTATE 5MG/ML VIAL IM PRN ×2 (07:34→16:27)
[2018-10-26] MEDS: QUETIAPINE FUMARATE 25MG TABLET NG SCH ×2 (08:05→23:52)
[2018-10-26] MEDS: MAGNESIUM OXIDE 400MG TABLET NG SCH (08:05)
[2018-10-26] MEDS: AMLODIPINE 5MG TABLET NG SCH ×2 (08:05→23:52)
[2018-10-26] MEDS: DIPHENHYDRAMINE 50MG/ML VIAL IV PRN ×3 (10:25→23:09)
[2018-10-26] MEDS: HYDRALAZINE HCL 50MG TABLET NG SCH ×3 (10:26→23:52)
[2018-10-26] MEDS: FAMOTIDINE 20MG/2ML VIAL IV SCH (12:07)
[2018-10-26 14:36] LABS: PLATELET ESTIMATE DECREASED
[2018-10-26] MEDS ORDERED: LACTULOSE 20G/30ML UDC PO NR (15:52)
[2018-10-26 17:08] LABS: BG BASE EXCESS 5.3 mmol/L (-2.0-2.0); BG CARBOXYHEMOGLOBIN 0.8 % (0.5-1.5); BG DEOXYHEMOGLOBIN 10.1 % (0.0-5.0); BG FRACTION INSPIRED OXYGEN 60; BG HCO3 ACT 29.2 mmol/L (22.0-26.0); BG METHEMOGLOBIN 0.1 % (0.0-1.5); BG OXYGEN SATURATION 89.8 % (92.0-98.5); BG PCO2 39.9 mmHg (35.0-45.0); BG PH 7.482 (7.350-7.450); BG PO2 55.9 mmHg (75.0-100.0); BG SAMPLE SITE RIGHT RADIAL; BG TOTAL HEMOGLOBIN 13.4 g/dL (12.0-18.0); BG VENT MODE MASK - AEROSOL
[2018-10-26] MEDS ORDERED: FUROSEMIDE 40MG/4ML VIAL IVP NR (18:30)
[2018-10-26] MEDS ORDERED: GENTAMICIN 120MG PREMIX 100 ML IV SCH (20:00)
[2018-10-26] MEDS ORDERED: VANCOMYCIN 1500MG in DEXTROSE 5% WATER 250ML IV NR (22:00)
[2018-10-26] MEDS ORDERED: VANCOMYCIN 1 G PREMIX 200 ML IV SCH (22:00)
[2018-10-26 22:57] LABS: BG BASE EXCESS 6.3 mmol/L (-2.0-2.0); BG BILEVEL POS AIRWAY PRESSURE 16/5; BG CARBOXYHEMOGLOBIN 0.2 % (0.5-1.5); BG DEOXYHEMOGLOBIN 1.7 % (0.0-5.0); BG FRACTION INSPIRED OXYGEN 90; BG HCO3 ACT 30.3 mmol/L (22.0-26.0); BG METHEMOGLOBIN 0.2 % (0.0-1.5); BG OXYGEN SATURATION 98.3 % (92.0-98.5); BG OXYHEMOGLOBIN 97.9 % (94.0-97.0); BG PH 7.486 (7.350-7.450); BG PO2 124.1 mmHg (75.0-100.0); BG SAMPLE SITE RIGHT RADIAL; BG TOTAL HEMOGLOBIN 13.4 g/dL (12.0-18.0); BG VENT MODE MASK - BIPAP
[2018-10-27] VITALS (90 sets, daily range): BP systolic 95–202; BP diastolic 18–133
[2018-10-27] MEDS: ACETYLCYSTEINE 100MG/ML 10% VIAL 4ML INH SCH ×3 (00:24→16:45)
[2018-10-27] MEDS: IPRATROPIUM/ALBUTEROL 0.5-3(2.5)MG/3ML NEB HHN SCH ×6 (00:25→20:21)
[2018-10-27] MEDS: MORPHINE SULFATE 4 MG/ML CPJ (NOT FOR IM USE) IV PRN ×4 (00:50→14:41)
[2018-10-27] MEDS: INSULIN LISPRO 100 UNITS/ML SUBCUT SCH ×4 (02:09→18:44)
[2018-10-27] MEDS: LORAZEPAM 2MG/ML CPJ IV PRN ×2 (02:12→14:57)
[2018-10-27] MEDS: LACTULOSE 20G/30ML UDC PO PRN ×2 (05:09→15:28)
[2018-10-27] MEDS: BLOOD SUGAR DIAGNOSTIC STRIP TEST SCH ×4 (06:00→18:43)
[2018-10-27] MEDS: HYDRALAZINE HCL 50MG TABLET NG SCH ×3 (06:00→22:00)
[2018-10-27] MEDS: PIPERACILLIN/TAZ 2.25G PREMIX 50 ML IV SCH ×2 (06:00→12:25)
[2018-10-27 06:20] LABS: HEMATOCRIT. 44.7 % (42.0-52.0); HEMOGLOBIN. 14.2 g/dL (14.0-18.0); MEAN CORPUSCULAR HEMOGLOBIN 27.1 pg (28.0-32.0); MEAN CORPUSCULAR VOLUME 85.5 fL (80.0-94.0); PLATELET 91 x1000/uL (130-400); RED BLOOD CELL COUNT 5.23 mill/uL (4.7-6.1); RED CELL DISTRIBUTION WIDTH 14.1 % (11.6-14.6)
[2018-10-27 06:27] LABS: CHLORIDE 111 mEq/L (98-107); INR 1.3; PARTIAL THROMBOPLASTIN TIME 21.7 sec (23.4-31.0); PROTHROMBIN TIME 12.9 sec (9.1-11.1)
[2018-10-27 06:38] LABS: AMYLASE 59 IU/L (25-115)
[2018-10-27 06:51] LABS: HEPATITIS B SURFACE ANTIGEN NEGATIVE
[2018-10-27] MEDS: NICARDIPINE 100 MG in SODIUM CHLORIDE 0.9% 60 ML IV PRN ×2 (07:14→17:35)
[2018-10-27 07:21] LABS: HEPATITIS A AB IGM NEGATIVE (NEGATIVE)
[2018-10-27 07:58] LABS: PLATELET ESTIMATE SLIGHTLY DECREASED
[2018-10-27] MEDS ORDERED: GENTAMICIN 100MG PREMIX 50 ML IV SCH (08:00)
[2018-10-27 08:28] LABS: BG BASE EXCESS 5.2 mmol/L (-2.0-2.0); BG BILEVEL POS AIRWAY PRESSURE ST=15/5; BG CARBOXYHEMOGLOBIN 0.2 % (0.5-1.5); BG DEOXYHEMOGLOBIN 0.9 % (0.0-5.0); BG FRACTION INSPIRED OXYGEN 90; BG HCO3 ACT 29.7 mmol/L (22.0-26.0); BG METHEMOGLOBIN 0.2 % (0.0-1.5); BG OXYGEN SATURATION 99.1 % (92.0-98.5); BG OXYHEMOGLOBIN 98.7 % (94.0-97.0); BG PH 7.457 (7.350-7.450); BG PO2 197.8 mmHg (75.0-100.0); BG PRESSURE SUPPORT 10; BG SAMPLE SITE RIGHT RADIAL; BG TOTAL HEMOGLOBIN 13.6 g/dL (12.0-18.0); BG VENT MODE MASK - BIPAP; BG VENT RATE 16 set
[2018-10-27] MEDS: HALOPERIDOL LACTATE 5MG/ML VIAL IM PRN ×2 (08:46→16:45)
[2018-10-27] MEDS: QUETIAPINE FUMARATE 25MG TABLET NG SCH ×2 (09:00→22:00)
[2018-10-27] MEDS ORDERED: METHYLPREDNISOLONE SOD SUCC 40 MG/ML VIAL IV SCH (09:00)
[2018-10-27] MEDS: AMLODIPINE 5MG TABLET NG SCH ×2 (09:00→22:00)
[2018-10-27] MEDS: MAGNESIUM OXIDE 400MG TABLET NG SCH (09:00)
[2018-10-27 09:38] LABS: CLARITY URINE CLEAR (CLEAR); COLOR URINE YELLOW (YELLOW); KETONES URINE NEGATIVE (NEGATIVE); LEUKOCYTE ESTERASE URINE TRACE (NEGATIVE); NITRITE URINE NEGATIVE (NEGATIVE); OCCULT BLOOD URINE 3+ (NEGATIVE); PH URINE 8.5 (4.5-8.0); PROTEIN URINE 1+ (NEGATIVE); SPECIFIC GRAVITY URINE 1.016 (1.005-1.030)
[2018-10-27] MEDS: DIPHENHYDRAMINE 50MG/ML VIAL IV PRN ×2 (09:48→15:28)
[2018-10-27] MEDS: METHYLPREDNISOLONE SOD SUCC 40 MG/ML VIAL IV SCH ×2 (09:48→21:59)
[2018-10-27] MEDS: FAMOTIDINE 20MG/2ML VIAL IV SCH (12:23)
[2018-10-27] MEDS: DEXT 5%/LACTATED RINGERS 1,000 ML IV SCH (12:31)
[2018-10-27] MEDS ORDERED: VANCOMYCIN 1 G PREMIX 200 ML IV SCH (15:00)
[2018-10-27] MEDS: CEFEPIME 1,000 MG in DEXTROSE 5% WATER 50 ML IV SCH (17:35)
[2018-10-27] MEDS ORDERED: GENTAMICIN SULFATE 160 MG in SODIUM CHLORIDE 0.9% 100 ML IV SCH (18:00)
[2018-10-27] MEDS ORDERED: VANCOMYCIN 1250MG in DEXTROSE 5% WATER 250ML IV SCH (21:00)
[2018-10-28] VITALS (96 sets, daily range): BP systolic 118–189; BP diastolic 20–114
[2018-10-28] MEDS: BLOOD SUGAR DIAGNOSTIC STRIP TEST SCH ×5 (00:08→23:40)
[2018-10-28] MEDS: SODIUM CHLORIDE 0.45% 1,000 ML IV SCH (00:08)
[2018-10-28] MEDS: IPRATROPIUM/ALBUTEROL 0.5-3(2.5)MG/3ML NEB HHN SCH ×6 (00:31→21:04)
[2018-10-28] MEDS: ACETYLCYSTEINE 100MG/ML 10% VIAL 4ML INH SCH ×3 (00:32→15:57)
[2018-10-28] MEDS: NICARDIPINE 100 MG in SODIUM CHLORIDE 0.9% 60 ML IV PRN ×2 (01:46→09:27)
[2018-10-28 05:31] LABS: HEMATOCRIT. 43.4 % (42.0-52.0); HEMOGLOBIN. 13.9 g/dL (14.0-18.0); MEAN CORPUSCULAR HEMOGLOBIN 27.4 pg (28.0-32.0); MEAN CORPUSCULAR VOLUME 85.6 fL (80.0-94.0); PLATELET 84 x1000/uL (130-400); RED BLOOD CELL COUNT 5.07 mill/uL (4.7-6.1); RED CELL DISTRIBUTION WIDTH 14.1 % (11.6-14.6)
[2018-10-28 05:38] LABS: INR 1.2; PARTIAL THROMBOPLASTIN TIME 21.9 sec (23.4-31.0); PROTHROMBIN TIME 11.7 sec (9.1-11.1)
[2018-10-28] MEDS: INSULIN LISPRO 100 UNITS/ML SUBCUT SCH ×5 (06:00→23:40)
[2018-10-28] MEDS: CEFEPIME 1,000 MG in DEXTROSE 5% WATER 50 ML IV SCH ×2 (06:20→17:44)
[2018-10-28] MEDS: HYDRALAZINE HCL 50MG TABLET NG SCH (06:21)
[2018-10-28] MEDS: LORAZEPAM 2MG/ML CPJ IV PRN ×3 (07:12→20:26)
[2018-10-28 07:44] LABS: BG BASE EXCESS 4.8 mmol/L (-2.0-2.0); BG BILEVEL POS AIRWAY PRESSURE 16/5; BG CARBOXYHEMOGLOBIN 0.5 % (0.5-1.5); BG DEOXYHEMOGLOBIN 1.9 % (0.0-5.0); BG METHEMOGLOBIN 0.3 % (0.0-1.5); BG OXYGEN SATURATION 98.1 % (92.0-98.5); BG OXYHEMOGLOBIN 97.3 % (94.0-97.0); BG PCO2 36.7 mmHg (35.0-45.0); BG SAMPLE SITE RIGHT RADIAL; BG TOTAL HEMOGLOBIN 14.1 g/dL (12.0-18.0); BG VENT MODE MASK - BIPAP; BG VENT RATE 16 set
[2018-10-28] MEDS: METHYLPREDNISOLONE SOD SUCC 40 MG/ML VIAL IV SCH ×2 (08:45→22:01)
[2018-10-28] MEDS: MAGNESIUM OXIDE 400MG TABLET NG SCH (08:45)
[2018-10-28] MEDS: QUETIAPINE FUMARATE 25MG TABLET NG SCH ×2 (08:45→22:00)
[2018-10-28] MEDS: AMLODIPINE 5MG TABLET NG SCH ×2 (08:45→22:00)
[2018-10-28] MEDS: MORPHINE SULFATE 4 MG/ML CPJ (NOT FOR IM USE) IV PRN ×3 (09:00→20:26)
[2018-10-28] MEDS: METOCLOPRAMIDE HCL 10MG/2ML VIAL IV SCH ×3 (12:56→23:49)
[2018-10-28] MEDS: FAMOTIDINE 20MG/2ML VIAL IV SCH (12:57)
[2018-10-28 13:18] LABS: PLATELET ESTIMATE DECREASED
[2018-10-28] MEDS: HYDRALAZINE HCL 100MG TABLET NG SCH ×2 (13:41→22:00)
[2018-10-28] MEDS: HALOPERIDOL LACTATE 5MG/ML VIAL IM PRN (19:03)
[2018-10-28] MEDS: DIPHENHYDRAMINE 50MG/ML VIAL IV PRN (23:50)
[2018-10-29] VITALS (98 sets, daily range): BP systolic 121–201; BP diastolic 34–124
[2018-10-29] MEDS: IPRATROPIUM/ALBUTEROL 0.5-3(2.5)MG/3ML NEB HHN SCH ×6 (00:16→21:09)
[2018-10-29] MEDS: ACETYLCYSTEINE 100MG/ML 10% VIAL 4ML INH SCH ×2 (00:17→09:10)
[2018-10-29] MEDS: BLOOD SUGAR DIAGNOSTIC STRIP TEST SCH ×3 (06:00→18:33)
[2018-10-29] MEDS: INSULIN LISPRO 100 UNITS/ML SUBCUT SCH ×3 (07:25→19:21)
[2018-10-29] MEDS: CEFEPIME 1,000 MG in DEXTROSE 5% WATER 50 ML IV SCH ×2 (08:15→18:36)
[2018-10-29] MEDS: METOCLOPRAMIDE HCL 10MG/2ML VIAL IV SCH ×3 (08:16→18:35)
[2018-10-29] MEDS: HYDRALAZINE HCL 100MG TABLET NG SCH ×3 (08:17→21:31)
[2018-10-29] MEDS: LORAZEPAM 2MG/ML CPJ IV PRN ×3 (08:18→20:20)
[2018-10-29] MEDS: MORPHINE SULFATE 4 MG/ML CPJ (NOT FOR IM USE) IV PRN ×2 (08:20→17:21)
[2018-10-29 08:25] LABS: BG BASE EXCESS 2.5 mmol/L (-2.0-2.0); BG BILEVEL POS AIRWAY PRESSURE 16/5; BG CARBOXYHEMOGLOBIN 0.7 % (0.5-1.5); BG DEOXYHEMOGLOBIN 2.8 % (0.0-5.0); BG FRACTION INSPIRED OXYGEN 70; BG HCO3 ACT 26.1 mmol/L (22.0-26.0); BG OXYGEN SATURATION 97.2 % (92.0-98.5); BG OXYHEMOGLOBIN 96.5 % (94.0-97.0); BG PCO2 36.8 mmHg (35.0-45.0); BG PH 7.468 (7.350-7.450); BG PO2 90.6 mmHg (75.0-100.0); BG SAMPLE SITE RIGHT RADIAL; BG TOTAL HEMOGLOBIN 13.9 g/dL (12.0-18.0); BG VENT MODE MASK - BIPAP
[2018-10-29] MEDS ORDERED: NICARDIPINE 40MG/200ML PREMIX 200 ML IV PRN (08:30)
[2018-10-29] MEDS: HALOPERIDOL LACTATE 5MG/ML VIAL IM PRN ×3 (09:28→18:35)
[2018-10-29] MEDS: METHYLPREDNISOLONE SOD SUCC 40 MG/ML VIAL IV SCH (09:28)
[2018-10-29] MEDS: AMLODIPINE 5MG TABLET NG SCH ×2 (09:28→21:31)
[2018-10-29] MEDS: MAGNESIUM OXIDE 400MG TABLET NG SCH (09:28)
[2018-10-29] MEDS: QUETIAPINE FUMARATE 25MG TABLET NG SCH ×2 (09:28→21:31)
[2018-10-29] MEDS: NICARDIPINE 100 MG in SODIUM CHLORIDE 0.9% 60 ML IV PRN ×2 (11:40→18:36)
[2018-10-29] MEDS: FUROSEMIDE 40MG/4ML VIAL IVP SCH (13:02)
[2018-10-29] MEDS: FAMOTIDINE 20MG/2ML VIAL IV SCH (13:02)
[2018-10-29 15:24] LABS: BG BASE EXCESS 4.7 mmol/L (-2.0-2.0); BG CARBOXYHEMOGLOBIN 0.9 % (0.5-1.5); BG DEOXYHEMOGLOBIN 11.6 % (0.0-5.0); BG FRACTION INSPIRED OXYGEN 50; BG HCO3 ACT 28.4 mmol/L (22.0-26.0); BG METHEMOGLOBIN 0.2 % (0.0-1.5); BG OXYGEN SATURATION 88.3 % (92.0-98.5); BG OXYHEMOGLOBIN 87.3 % (94.0-97.0); BG PCO2 38.7 mmHg (35.0-45.0); BG PH 7.483 (7.350-7.450); BG PO2 53.7 mmHg (75.0-100.0); BG SAMPLE SITE LEFT BRACHIAL; BG TOTAL HEMOGLOBIN 14.4 g/dL (12.0-18.0); BG VENT MODE MASK - VENTI
[2018-10-29 18:17] LABS: BG BASE EXCESS 3.3 mmol/L (-2.0-2.0); BG CARBOXYHEMOGLOBIN 0.7 % (0.5-1.5); BG DEOXYHEMOGLOBIN 4.4 % (0.0-5.0); BG FRACTION INSPIRED OXYGEN 100; BG HCO3 ACT 26.6 mmol/L (22.0-26.0); BG METHEMOGLOBIN 0.3 % (0.0-1.5); BG OXYGEN SATURATION 95.6 % (92.0-98.5); BG OXYHEMOGLOBIN 94.6 % (94.0-97.0); BG PCO2 36.6 mmHg (35.0-45.0); BG PO2 76.6 mmHg (75.0-100.0); BG SAMPLE SITE RIGHT BRACHIAL; BG TOTAL HEMOGLOBIN 14.1 g/dL (12.0-18.0); BG VENT MODE MASK - NRB
[2018-10-29] MEDS: MINOXIDIL 2.5MG TABLET NG SCH (21:31)
[2018-10-30] VITALS (97 sets, daily range): BP systolic 122–189; BP diastolic 50–125
[2018-10-30] MEDS: MORPHINE SULFATE 4 MG/ML CPJ (NOT FOR IM USE) IV PRN ×4 (00:31→20:37)
[2018-10-30] MEDS: METOCLOPRAMIDE HCL 10MG/2ML VIAL IV SCH ×4 (00:31→19:40)
[2018-10-30] MEDS: SODIUM CHLORIDE 0.45% 1,000 ML IV SCH ×3 (00:32→23:22)
[2018-10-30] MEDS: NICARDIPINE 100 MG in SODIUM CHLORIDE 0.9% 60 ML IV PRN ×3 (00:32→20:39)
[2018-10-30] MEDS: BLOOD SUGAR DIAGNOSTIC STRIP TEST SCH ×4 (00:33→18:00)
[2018-10-30] MEDS: INSULIN LISPRO 100 UNITS/ML SUBCUT SCH ×4 (00:40→19:41)
[2018-10-30] MEDS: ACETYLCYSTEINE 100MG/ML 10% VIAL 4ML INH SCH ×3 (00:47→16:49)
[2018-10-30] MEDS: IPRATROPIUM/ALBUTEROL 0.5-3(2.5)MG/3ML NEB HHN SCH ×6 (00:47→20:42)
[2018-10-30] MEDS: CEFEPIME 1,000 MG in DEXTROSE 5% WATER 50 ML IV SCH ×2 (05:34→19:42)
[2018-10-30] MEDS: HYDRALAZINE HCL 100MG TABLET NG SCH ×3 (05:34→21:41)
[2018-10-30] MEDS: LORAZEPAM 2MG/ML CPJ IV PRN ×2 (05:35→13:21)
[2018-10-30] MEDS: HALOPERIDOL LACTATE 5MG/ML VIAL IM PRN (07:31)
[2018-10-30 07:51] LABS: HEMATOCRIT. 40.1 % (42.0-52.0); HEMOGLOBIN. 12.9 g/dL (14.0-18.0); MEAN CORPUSCULAR HEMOGLOBIN 27.3 pg (28.0-32.0); MEAN CORPUSCULAR VOLUME 85.2 fL (80.0-94.0); MEAN PLATELET VOLUME 11.6 fl (7.4-10.4); PLATELET 93 x1000/uL (130-400); RED BLOOD CELL COUNT 4.71 mill/uL (4.7-6.1); RED CELL DISTRIBUTION WIDTH 14.1 % (11.6-14.6)
[2018-10-30] MEDS: QUETIAPINE FUMARATE 25MG TABLET NG SCH ×2 (08:11→20:37)
[2018-10-30] MEDS: MINOXIDIL 2.5MG TABLET NG SCH ×2 (08:12→20:38)
[2018-10-30] MEDS: AMLODIPINE 5MG TABLET NG SCH ×2 (08:12→20:37)
[2018-10-30] MEDS: MAGNESIUM OXIDE 400MG TABLET NG SCH (08:12)
[2018-10-30] MEDS: FUROSEMIDE 40MG/4ML VIAL IVP SCH (08:13)
[2018-10-30] MEDS: METHYLPREDNISOLONE SOD SUCC 40 MG/ML VIAL IV SCH (08:13)
[2018-10-30 09:02] LABS: BG BASE EXCESS 2.8 mmol/L (-2.0-2.0); BG CARBOXYHEMOGLOBIN 0.2 % (0.5-1.5); BG DEOXYHEMOGLOBIN 1.3 % (0.0-5.0); BG FRACTION INSPIRED OXYGEN 100; BG HCO3 ACT 26.4 mmol/L (22.0-26.0); BG METHEMOGLOBIN 0.2 % (0.0-1.5); BG OXYGEN SATURATION 98.7 % (92.0-98.5); BG OXYHEMOGLOBIN 98.3 % (94.0-97.0); BG PCO2 37.2 mmHg (35.0-45.0); BG PH 7.469 (7.350-7.450); BG PO2 140.8 mmHg (75.0-100.0); BG SAMPLE SITE RIGHT RADIAL; BG TOTAL HEMOGLOBIN 13.5 g/dL (12.0-18.0); BG VENT MODE MASK - NRB
[2018-10-30 10:05] LABS: PLATELET ESTIMATE DECREASED
[2018-10-30 12:35] LABS: BG BASE EXCESS 4.1 mmol/L (-2.0-2.0); BG CARBOXYHEMOGLOBIN 0.6 % (0.5-1.5); BG DEOXYHEMOGLOBIN 5.8 % (0.0-5.0); BG FRACTION INSPIRED OXYGEN 50; BG HCO3 ACT 28.4 mmol/L (22.0-26.0); BG METHEMOGLOBIN 0.3 % (0.0-1.5); BG OXYGEN SATURATION 94.1 % (92.0-98.5); BG OXYHEMOGLOBIN 93.3 % (94.0-97.0); BG PCO2 41.2 mmHg (35.0-45.0); BG PH 7.456 (7.350-7.450); BG PO2 77.1 mmHg (75.0-100.0); BG SAMPLE SITE RIGHT RADIAL; BG TOTAL HEMOGLOBIN 13.7 g/dL (12.0-18.0); BG VENT MODE MASK - VENTI
[2018-10-30] MEDS: FAMOTIDINE 20MG/2ML VIAL IV SCH (12:46)
[2018-10-30] MEDS: DIPHENHYDRAMINE 50MG/ML VIAL IV PRN (14:39)
[2018-10-31] VITALS (98 sets, daily range): BP systolic 119–178; BP diastolic 53–94
[2018-10-31] MEDS: IPRATROPIUM/ALBUTEROL 0.5-3(2.5)MG/3ML NEB HHN SCH ×6 (00:12→19:49)
[2018-10-31] MEDS: ACETYLCYSTEINE 100MG/ML 10% VIAL 4ML INH SCH ×3 (00:12→17:08)
[2018-10-31] MEDS: LORAZEPAM 2MG/ML CPJ IV PRN ×3 (00:13→18:29)
[2018-10-31] MEDS: BLOOD SUGAR DIAGNOSTIC STRIP TEST SCH ×4 (00:13→17:23)
[2018-10-31] MEDS: METOCLOPRAMIDE HCL 10MG/2ML VIAL IV SCH ×4 (00:13→17:23)
[2018-10-31] MEDS: DIPHENHYDRAMINE 50MG/ML VIAL IV PRN ×2 (00:48→08:05)
[2018-10-31] MEDS: MORPHINE SULFATE 4 MG/ML CPJ (NOT FOR IM USE) IV PRN ×2 (02:37→21:18)
[2018-10-31] MEDS: NICARDIPINE 100 MG in SODIUM CHLORIDE 0.9% 60 ML IV PRN ×3 (03:42→17:27)
[2018-10-31] MEDS: HYDRALAZINE HCL 100MG TABLET NG SCH ×3 (05:31→22:03)
[2018-10-31] MEDS: INSULIN LISPRO 100 UNITS/ML SUBCUT SCH ×4 (05:31→17:30)
[2018-10-31 06:04] LABS: HEMATOCRIT. 38.3 % (42.0-52.0); HEMOGLOBIN. 12.5 g/dL (14.0-18.0); MEAN CORPUSCULAR HEMOGLOBIN 27.6 pg (28.0-32.0); MEAN CORPUSCULAR VOLUME 84.4 fL (80.0-94.0); MEAN PLATELET VOLUME 11.8 fl (7.4-10.4); PLATELET 95 x1000/uL (130-400); RED BLOOD CELL COUNT 4.54 mill/uL (4.7-6.1); RED CELL DISTRIBUTION WIDTH 14.1 % (11.6-14.6)
[2018-10-31 06:13] LABS: CHLORIDE 105 mEq/L (98-107)
[2018-10-31] MEDS: CEFEPIME 1,000 MG in DEXTROSE 5% WATER 50 ML IV SCH ×2 (06:20→17:23)
[2018-10-31 07:38] LABS: PLATELET ESTIMATE DECREASED
[2018-10-31] MEDS: METHYLPREDNISOLONE SOD SUCC 40 MG/ML VIAL IV SCH (08:05)
[2018-10-31] MEDS: FUROSEMIDE 40MG/4ML VIAL IVP SCH (08:05)
[2018-10-31] MEDS: LACTULOSE 20G/30ML UDC PO PRN (08:05)
[2018-10-31] MEDS: QUETIAPINE FUMARATE 25MG TABLET NG SCH ×2 (08:05→21:17)
[2018-10-31] MEDS: AMLODIPINE 5MG TABLET NG SCH (08:06)
[2018-10-31] MEDS: MAGNESIUM OXIDE 400MG TABLET NG SCH (08:06)
[2018-10-31] MEDS: MINOXIDIL 2.5MG TABLET NG SCH (08:06)
[2018-10-31] MEDS: HALOPERIDOL LACTATE 5MG/ML VIAL IM PRN ×2 (08:39→18:05)
[2018-10-31] MEDS ORDERED: HYDRALAZINE 20MG/ML VIAL IV PRN (10:00)
[2018-10-31] MEDS ORDERED: CLONIDINE 0.2MG TABLET PO NR (10:00)
[2018-10-31] MEDS ORDERED: AMLODIPINE 5MG TABLET PO NR (10:00)
[2018-10-31] MEDS ORDERED: MINOXIDIL 2.5MG TABLET PO NR (10:51)
[2018-10-31] MEDS: FAMOTIDINE 20MG/2ML VIAL IV SCH (12:40)
[2018-10-31] MEDS: SODIUM CHLORIDE 0.45% 1,000 ML IV SCH (14:13)
[2018-10-31] MEDS ORDERED: CLONIDINE 0.2MG TABLET PO SCH (21:00)
[2018-10-31] MEDS: AMLODIPINE 10MG TABLET PO SCH (21:17)
[2018-10-31] MEDS: MINOXIDIL 10MG TABLET PO SCH (21:17)
[2018-11-01] VITALS (100 sets, daily range): BP systolic 99–175; BP diastolic 45–80
[2018-11-01] MEDS: BLOOD SUGAR DIAGNOSTIC STRIP TEST SCH ×4 (00:08→17:34)
[2018-11-01] MEDS: METOCLOPRAMIDE HCL 10MG/2ML VIAL IV SCH ×4 (00:12→17:34)
[2018-11-01] MEDS: IPRATROPIUM/ALBUTEROL 0.5-3(2.5)MG/3ML NEB HHN SCH ×6 (00:26→21:05)
[2018-11-01] MEDS: NICARDIPINE 100 MG in SODIUM CHLORIDE 0.9% 60 ML IV PRN ×4 (00:55→23:34)
[2018-11-01 05:25] LABS: HEMATOCRIT. 36.3 % (42.0-52.0); HEMOGLOBIN. 11.6 g/dL (14.0-18.0); MEAN CORPUSCULAR HEMOGLOBIN 26.9 pg (28.0-32.0); MEAN PLATELET VOLUME 11.6 fl (7.4-10.4); PLATELET 87 x1000/uL (130-400); RED BLOOD CELL COUNT 4.32 mill/uL (4.7-6.1)
[2018-11-01] MEDS: INSULIN LISPRO 100 UNITS/ML SUBCUT SCH ×4 (05:42→18:08)
[2018-11-01] MEDS: HYDRALAZINE HCL 100MG TABLET NG SCH ×3 (05:42→21:34)
[2018-11-01] MEDS: CEFEPIME 1,000 MG in DEXTROSE 5% WATER 50 ML IV SCH ×2 (05:43→17:34)
[2018-11-01] MEDS: LORAZEPAM 2MG/ML CPJ IV PRN ×2 (05:48→15:02)
[2018-11-01] MEDS: FUROSEMIDE 40MG/4ML VIAL IVP SCH (08:38)
[2018-11-01] MEDS: METHYLPREDNISOLONE SOD SUCC 40 MG/ML VIAL IV SCH (08:38)
[2018-11-01] MEDS: MAGNESIUM OXIDE 400MG TABLET NG SCH (08:39)
[2018-11-01] MEDS: QUETIAPINE FUMARATE 25MG TABLET NG SCH ×2 (08:39→21:32)
[2018-11-01] MEDS: HALOPERIDOL LACTATE 5MG/ML VIAL IM PRN (08:39)
[2018-11-01] MEDS: AMLODIPINE 10MG TABLET PO SCH ×2 (08:39→21:33)
[2018-11-01] MEDS: HYDRALAZINE 20MG/ML VIAL IV PRN ×2 (08:41→12:21)
[2018-11-01] MEDS: LACTULOSE 20G/30ML UDC PO PRN (08:41)
[2018-11-01] MEDS: MINOXIDIL 10MG TABLET PO SCH ×2 (08:47→21:33)
[2018-11-01] MEDS: DIPHENHYDRAMINE 50MG/ML VIAL IV PRN ×2 (08:47→17:34)
[2018-11-01] MEDS ORDERED: AMLODIPINE 10MG TABLET PO SCH (09:00)
[2018-11-01] MEDS: FAMOTIDINE 20MG/2ML VIAL IV SCH (12:21)
[2018-11-01 13:56] LABS: PLATELET ESTIMATE DECREASED
[2018-11-01] MEDS: SODIUM CHLORIDE 0.45% 1,000 ML IV SCH (15:02)
[2018-11-01] MEDS: CLONIDINE 0.2MG TABLET PO SCH (21:34)
[2018-11-02] VITALS (68 sets, daily range): BP systolic 106–171; BP diastolic 49–94
[2018-11-02] MEDS: IPRATROPIUM/ALBUTEROL 0.5-3(2.5)MG/3ML NEB HHN SCH ×6 (00:25→21:29)
[2018-11-02] MEDS: METOCLOPRAMIDE HCL 10MG/2ML VIAL IV SCH ×5 (00:42→23:32)
[2018-11-02] MEDS: BLOOD SUGAR DIAGNOSTIC STRIP TEST SCH ×5 (00:43→23:32)
[2018-11-02] MEDS: INSULIN LISPRO 100 UNITS/ML SUBCUT SCH ×5 (06:00→23:32)
[2018-11-02 06:04] LABS: HEMATOCRIT 34.7 % (42.0-52.0); HEMOGLOBIN 11.4 g/dL (14.0-18.0); MEAN CORPUSCULAR HEMOGLOBIN 27.4 pg (28.0-32.0); MEAN CORPUSCULAR VOLUME 83.6 fL (80.0-94.0); PLATELET 99 x1000/uL (130-400); RED BLOOD CELL COUNT 4.15 mill/uL (4.7-6.1); RED CELL DISTRIBUTION WIDTH 13.7 % (11.6-14.6)
[2018-11-02 06:23] LABS: CHLORIDE 105 mEq/L (98-107)
[2018-11-02] MEDS: CEFEPIME 1,000 MG in DEXTROSE 5% WATER 50 ML IV SCH ×2 (06:32→17:47)
[2018-11-02] MEDS: HYDRALAZINE HCL 100MG TABLET NG SCH ×3 (06:32→21:36)
[2018-11-02] MEDS: NICARDIPINE 100 MG in SODIUM CHLORIDE 0.9% 60 ML IV PRN (06:42)
[2018-11-02] MEDS: AMLODIPINE 10MG TABLET PO SCH ×2 (08:22→20:38)
[2018-11-02] MEDS: QUETIAPINE FUMARATE 25MG TABLET NG SCH ×2 (08:22→20:38)
[2018-11-02] MEDS: MINOXIDIL 10MG TABLET PO SCH ×2 (08:22→20:38)
[2018-11-02] MEDS: LORAZEPAM 2MG/ML CPJ IV PRN ×3 (08:22→20:38)
[2018-11-02] MEDS: CLONIDINE 0.2MG TABLET PO SCH ×3 (08:22→21:36)
[2018-11-02] MEDS: MAGNESIUM OXIDE 400MG TABLET NG SCH (08:22)
[2018-11-02] MEDS: FUROSEMIDE 40MG/4ML VIAL IVP SCH (08:22)
[2018-11-02 08:55] LABS: BG BASE EXCESS 2.8 mmol/L (-2.0-2.0); BG BILEVEL POS AIRWAY PRESSURE 16/5; BG CARBOXYHEMOGLOBIN 0.4 % (0.5-1.5); BG FRACTION INSPIRED OXYGEN 50; BG HCO3 ACT 25.1 mmol/L (22.0-26.0); BG METHEMOGLOBIN 0.3 % (0.0-1.5); BG OXYHEMOGLOBIN 93.3 % (94.0-97.0); BG PCO2 31.2 mmHg (35.0-45.0); BG PH 7.524 (7.350-7.450); BG PO2 66.4 mmHg (75.0-100.0); BG SAMPLE SITE RIGHT RADIAL; BG TOTAL HEMOGLOBIN 11.6 g/dL (12.0-18.0); BG VENT MODE MASK - BIPAP; BG VENT RATE 16 set
[2018-11-02] MEDS: FAMOTIDINE 20MG/2ML VIAL IV SCH (12:42)
[2018-11-02] MEDS: HALOPERIDOL LACTATE 5MG/ML VIAL IM PRN (14:33)
[2018-11-03] VITALS (46 sets, daily range): BP systolic 25–159; BP diastolic 51–76
[2018-11-03] MEDS: HALOPERIDOL LACTATE 5MG/ML VIAL IM PRN (01:09)
[2018-11-03] MEDS: IPRATROPIUM/ALBUTEROL 0.5-3(2.5)MG/3ML NEB HHN SCH ×5 (03:05→20:06)
[2018-11-03] MEDS: INSULIN LISPRO 100 UNITS/ML SUBCUT SCH ×4 (06:30→23:14)
[2018-11-03] MEDS: BLOOD SUGAR DIAGNOSTIC STRIP TEST SCH ×4 (06:30→23:14)
[2018-11-03] MEDS: CLONIDINE 0.2MG TABLET PO SCH ×3 (06:30→22:20)
[2018-11-03] MEDS: METOCLOPRAMIDE HCL 10MG/2ML VIAL IV SCH ×3 (06:30→20:10)
[2018-11-03] MEDS: HYDRALAZINE HCL 100MG TABLET NG SCH ×3 (06:30→22:21)
[2018-11-03] MEDS: CEFEPIME 1,000 MG in DEXTROSE 5% WATER 50 ML IV SCH ×2 (06:30→17:51)
[2018-11-03 06:58] LABS: HEMATOCRIT. 31.4 % (42.0-52.0); HEMOGLOBIN. 10.4 g/dL (14.0-18.0); MEAN CORPUSCULAR HEMOGLOBIN 27.5 pg (28.0-32.0); MEAN CORPUSCULAR VOLUME 83.4 fL (80.0-94.0); MEAN PLATELET VOLUME 12.1 fl (7.4-10.4); PLATELET 88 x1000/uL (130-400); RED BLOOD CELL COUNT 3.76 mill/uL (4.7-6.1); RED CELL DISTRIBUTION WIDTH 13.7 % (11.6-14.6)
[2018-11-03] MEDS: FUROSEMIDE 40MG/4ML VIAL IVP SCH (09:32)
[2018-11-03] MEDS: MAGNESIUM OXIDE 400MG TABLET NG SCH (09:32)
[2018-11-03] MEDS: MINOXIDIL 10MG TABLET PO SCH ×2 (09:33→20:11)
[2018-11-03] MEDS: QUETIAPINE FUMARATE 25MG TABLET NG SCH ×2 (09:33→20:10)
[2018-11-03] MEDS: AMLODIPINE 10MG TABLET PO SCH ×2 (09:33→20:11)
[2018-11-03] MEDS ORDERED: LACTULOSE 20G/30ML UDC PO PRN (10:30)
[2018-11-03 10:31] LABS: PLATELET ESTIMATE DECREASED
[2018-11-03 11:25] LABS: BG BASE EXCESS 2.5 mmol/L (-2.0-2.0); BG CARBOXYHEMOGLOBIN 0.7 % (0.5-1.5); BG DEOXYHEMOGLOBIN 7.2 % (0.0-5.0); BG FRACTION INSPIRED OXYGEN 40; BG HCO3 ACT 25.4 mmol/L (22.0-26.0); BG METHEMOGLOBIN 0.2 % (0.0-1.5); BG OXYGEN SATURATION 92.7 % (92.0-98.5); BG OXYHEMOGLOBIN 91.9 % (94.0-97.0); BG PCO2 33.3 mmHg (35.0-45.0); BG PO2 63.6 mmHg (75.0-100.0); BG SAMPLE SITE RIGHT RADIAL; BG TOTAL HEMOGLOBIN 11.1 g/dL (12.0-18.0); BG VENT MODE NASAL CANNULA
[2018-11-03] MEDS: FAMOTIDINE 20MG/2ML VIAL IV SCH (12:23)
[2018-11-03] MEDS: DOCUSATE SODIUM 250MG CAPSULE PO SCH (12:27)
[2018-11-04] VITALS (12 sets, daily range): BP systolic 127–155; BP diastolic 54–81
[2018-11-04] MEDS: IPRATROPIUM/ALBUTEROL 0.5-3(2.5)MG/3ML NEB HHN SCH ×6 (00:26→21:31)
[2018-11-04] MEDS: METOCLOPRAMIDE HCL 10MG/2ML VIAL IV SCH ×3 (03:40→20:23)
[2018-11-04] MEDS: HYDRALAZINE HCL 100MG TABLET NG SCH ×3 (05:11→21:26)
[2018-11-04] MEDS: CLONIDINE 0.2MG TABLET PO SCH ×3 (05:11→21:26)
[2018-11-04] MEDS: CEFEPIME 1,000 MG in DEXTROSE 5% WATER 50 ML IV SCH ×2 (05:12→17:23)
[2018-11-04] MEDS: INSULIN LISPRO 100 UNITS/ML SUBCUT SCH ×3 (05:58→17:23)
[2018-11-04] MEDS: BLOOD SUGAR DIAGNOSTIC STRIP TEST SCH ×3 (05:58→17:23)
[2018-11-04 06:54] LABS: HEMATOCRIT. 31.1 % (42.0-52.0); HEMOGLOBIN. 10.1 g/dL (14.0-18.0); MEAN CORPUSCULAR HEMOGLOBIN 27.1 pg (28.0-32.0); MEAN CORPUSCULAR VOLUME 83.2 fL (80.0-94.0); MEAN PLATELET VOLUME 11.5 fl (7.4-10.4); PLATELET 103 x1000/uL (130-400); RED BLOOD CELL COUNT 3.74 mill/uL (4.7-6.1); RED CELL DISTRIBUTION WIDTH 13.9 % (11.6-14.6)
[2018-11-04] MEDS: AMLODIPINE 10MG TABLET PO SCH ×2 (08:17→21:26)
[2018-11-04] MEDS: FUROSEMIDE 40MG/4ML VIAL IVP SCH (08:17)
[2018-11-04] MEDS: MAGNESIUM OXIDE 400MG TABLET NG SCH (08:17)
[2018-11-04] MEDS: QUETIAPINE FUMARATE 25MG TABLET NG SCH ×2 (08:17→21:26)
[2018-11-04] MEDS: DOCUSATE SODIUM 250MG CAPSULE PO SCH (08:17)
[2018-11-04 08:45] LABS: BG BASE EXCESS 1.8 mmol/L (-2.0-2.0); BG CARBOXYHEMOGLOBIN 0.6 % (0.5-1.5); BG DEOXYHEMOGLOBIN 4.8 % (0.0-5.0); BG FRACTION INSPIRED OXYGEN 36; BG HCO3 ACT 24.3 mmol/L (22.0-26.0); BG METHEMOGLOBIN 0.3 % (0.0-1.5); BG OXYGEN SATURATION 95.2 % (92.0-98.5); BG OXYHEMOGLOBIN 94.3 % (94.0-97.0); BG PCO2 31.2 mmHg (35.0-45.0); BG PO2 73.2 mmHg (75.0-100.0); BG SAMPLE SITE RIGHT RADIAL; BG TOTAL HEMOGLOBIN 10.7 g/dL (12.0-18.0); BG VENT MODE NASAL CANNULA
[2018-11-04] MEDS: MINOXIDIL 10MG TABLET PO SCH ×2 (10:40→21:26)
[2018-11-04] MEDS: FAMOTIDINE 20MG/2ML VIAL IV SCH (13:12)
[2018-11-04 14:24] LABS: ATYPICAL LYMPHOCYTES 1
[2018-11-04 14:25] LABS: PLATELET ESTIMATE SLIGHTLY DECREASED
[2018-11-04] MEDS: LACTULOSE 20G/30ML UDC PO PRN (22:42)
[2018-11-05] VITALS (11 sets, daily range): BP systolic 123–159; BP diastolic 51–97
[2018-11-05] MEDS: BLOOD SUGAR DIAGNOSTIC STRIP TEST SCH ×4 (00:01→17:28)
[2018-11-05] MEDS: INSULIN LISPRO 100 UNITS/ML SUBCUT SCH ×4 (00:02→17:28)
[2018-11-05] MEDS: IPRATROPIUM/ALBUTEROL 0.5-3(2.5)MG/3ML NEB HHN SCH ×5 (01:02→16:00)
[2018-11-05] MEDS: METOCLOPRAMIDE HCL 10MG/2ML VIAL IV SCH ×2 (03:33→12:54)
[2018-11-05] MEDS: CEFEPIME 1,000 MG in DEXTROSE 5% WATER 50 ML IV SCH ×2 (05:05→17:48)
[2018-11-05] MEDS: HYDRALAZINE HCL 100MG TABLET NG SCH ×2 (05:05→14:33)
[2018-11-05] MEDS: CLONIDINE 0.2MG TABLET PO SCH ×2 (05:05→14:33)
[2018-11-05 07:23] LABS: HEMATOCRIT 31.2 % (42.0-52.0); HEMOGLOBIN 10.2 g/dL (14.0-18.0); MEAN CORPUSCULAR HEMOGLOBIN 27.3 pg (28.0-32.0); MEAN CORPUSCULAR VOLUME 83.3 fL (80.0-94.0); PLATELET 112 x1000/uL (130-400); RED BLOOD CELL COUNT 3.75 mill/uL (4.7-6.1); RED CELL DISTRIBUTION WIDTH 13.7 % (11.6-14.6)
[2018-11-05] MEDS: DOCUSATE SODIUM 250MG CAPSULE PO SCH (09:19)
[2018-11-05] MEDS: QUETIAPINE FUMARATE 25MG TABLET NG SCH (09:19)
[2018-11-05] MEDS: AMLODIPINE 10MG TABLET PO SCH (09:19)
[2018-11-05] MEDS: FUROSEMIDE 40MG/4ML VIAL IVP SCH (09:19)
[2018-11-05] MEDS: MAGNESIUM OXIDE 400MG TABLET NG SCH (09:19)
[2018-11-05] MEDS: MINOXIDIL 10MG TABLET PO SCH (09:20)
[2018-11-05] MEDS: FAMOTIDINE 20MG/2ML VIAL IV SCH (12:54)
== END 2018-11-05 19:45 | DRG 25 ==
LOC: ER 18:30 → MICUNO 23:12 → EDBEDREQSVC 23:16 → EDBEDREQTM 23:16 → EDBEDREQ 23:16 → ENRESERV 10-15 07:35 → 3WST 11-03 21:35
PROVIDERS: ADMIT Internal Medicine; ATTEND Internal Medicine
PROC: 00C40ZZ Extirpation of Matter from Intracranial Subdural Space, Open Approach (ICD-10-PCS; principal; 2018-10-15)
PROC: 00H002Z Insertion of Monitoring Device into Brain, Open Approach (ICD-10-PCS; 2018-10-15)
PROC: 00U207Z Supplement Dura Mater with Autologous Tissue Substitute, Open Approach (ICD-10-PCS; 2018-10-15)
PROC: 4A107BD Monitoring of Intracranial Pressure, Via Natural or Artificial Opening (ICD-10-PCS; 2018-10-15)
PROC: 5A1955Z Respiratory Ventilation, Greater than 96 Consecutive Hours (ICD-10-PCS; 2018-10-15)
PROC: 0BH17EZ Insertion of Endotracheal Airway into Trachea, Via Natural or Artificial Opening (ICD-10-PCS; 2018-10-15)
PROC: 00C40ZZ Extirpation of Matter from Intracranial Subdural Space, Open Approach (ICD-10-PCS; 2018-10-18)
PROC: 00H002Z Insertion of Monitoring Device into Brain, Open Approach (ICD-10-PCS; 2018-10-18)
PROC: 00U207Z Supplement Dura Mater with Autologous Tissue Substitute, Open Approach (ICD-10-PCS; 2018-10-18)
PROC: 4A107BD Monitoring of Intracranial Pressure, Via Natural or Artificial Opening (ICD-10-PCS; 2018-10-18)
PROC: 05HY33Z Insertion of Infusion Device into Upper Vein, Percutaneous Approach (ICD-10-PCS; 2018-10-18)
PROC: B54PZZA Ultrasonography of Bilateral Upper Extremity Veins, Guidance (ICD-10-PCS; 2018-10-18)
PROC: 30233K1 Transfusion of Nonautologous Frozen Plasma into Peripheral Vein, Percutaneous Approach (ICD-10-PCS; 2018-10-19)
PROC: 5A09557 Assistance with Respiratory Ventilation, Greater than 96 Consecutive Hours, Continuous Positive Airway Pressure (ICD-10-PCS; 2018-10-27)
PROC: 5A09357 Assistance with Respiratory Ventilation, Less than 24 Consecutive Hours, Continuous Positive Airway Pressure (ICD-10-PCS; 2018-11-02)
DX: S06.5X9A Traumatic subdural hemorrhage with loss of consciousness of unspecified duration, initial encounter (principal); J96.00 Acute respiratory failure, unspecified whether with hypoxia or hypercapnia; N17.0 Acute kidney failure with tubular necrosis; G93.41 Metabolic encephalopathy; J18.9 Pneumonia, unspecified organism; K72.00 Acute and subacute hepatic failure without coma; G82.50 Quadriplegia, unspecified; L97.929 Non-pressure chronic ulcer of unspecified part of left lower leg with unspecified severity; L97.919 Non-pressure chronic ulcer of unspecified part of right lower leg with unspecified severity; D68.62 Lupus anticoagulant syndrome; E87.0 Hyperosmolality and hypernatremia; Z99.11 Dependence on respirator [ventilator] status; J95.851 Ventilator associated pneumonia; K56.7 Ileus, unspecified; E87.5 Hyperkalemia; I83.029 Varicose veins of left lower extremity with ulcer of unspecified site; D64.9 Anemia, unspecified; E11.22 Type 2 diabetes mellitus with diabetic chronic kidney disease; E11.51 Type 2 diabetes mellitus with diabetic peripheral angiopathy without gangrene; I07.1 Rheumatic tricuspid insufficiency; I13.10 Hypertensive heart and chronic kidney disease without heart failure, with stage 1 through stage 4 chronic kidney disease, or unspecified chronic kidney disease; I83.019 Varicose veins of right lower extremity with ulcer of unspecified site; I87.2 Venous insufficiency (chronic) (peripheral); J38.4 Edema of larynx; N18.9 Chronic kidney disease, unspecified; R13.10 Dysphagia, unspecified; K76.0 Fatty (change of) liver, not elsewhere classified; Z78.1 Physical restraint status; Y92.410 Unspecified street and highway as the place of occurrence of the external cause; Z79.899 Other long term (current) drug therapy; Z91.81 History of falling; T38.0X5A Adverse effect of glucocorticoids and synthetic analogues, initial encounter; Y92.89 Other specified places as the place of occurrence of the external cause; D69.6 Thrombocytopenia, unspecified; E03.9 Hypothyroidism, unspecified; R00.1 Bradycardia, unspecified
CPT/HCPCS: 36415; 36569; 36600; 71045; 74018; 76700; 76937; 78580; 80048; 80076; 80185; 80305; 82150; 82248; 82375; 82805; 82962; 83036; 83615; 83735; 83880; 84145; 84443; 84478; 84484; 85007; 85027; 85613; 85732; 86038; 86705; 86709; 86803; 86850; 86900; 86927; 87070; 87340; 88305; 92610; 93005; 93306; 93970; 94002; 94003; 94640; 94660; 96365; 97162; 97530; 99291; A6261; C1713; C1725; C1758; C9113; J0360; J0461; J0690; J0692; J1100; J1165; J1170; J1200; J1580; J1630; J1815; J1940; J1953; J2060; J2250; J2270; J2405; J2543; J2704; J2710; J2765; J2920; J3010; J3370; J3490; J7050; J7060; J7120; J7121; J7608; J7620; P9017; Q2009